=== PATIENT | female | born 1955 | race Caucasian/White ===

== ENCOUNTER 2023-11-06 13:41 | Outpatient (REF) | payer MEDICARE, SELFPAY ==
[2023-11-06 21:22] LABS: ALT 79 U/L (14-59); AST 52 U/L (15-37); Albumin 4.1 g/dL (3.4-5.0); Alkaline Phosphatase 86 U/L (46-116); Anion Gap 8.5 mmol/L (3-11); BUN 21 mg/dL (7-18); Bilirubin, Total 0.5 mg/dL (0.2-1.0); CO2 25.5 mmol/L (21.0-32.0); Calcium 9.7 mg/dL (8.5-10.1); Chloride 104 mmol/L (98-107); Estimated GFR 62.52 (mL/min/1.73m2); Glucose 108 mg/dL (74-106); Potassium 4.3 mmol/L (3.5-5.1); Sodium 138 mmol/L (136-145); TSH 1.27 uIU/mL (0.36-3.74); Total Protein 7.6 g/dL (6.4-8.2)
[2023-11-06 22:07] LABS: Hemoglobin A1C 7.1 % (<5.7)
== END 2023-11-06 13:42 | disposition home or self-care (01) ==
LOC: NCHCN 13:41
PROVIDERS: Visit Provider Nurse Practitioner Family
DX: E11.9 Type 2 diabetes mellitus without complications (principal); E03.9 Hypothyroidism, unspecified
CPT/HCPCS: 80053; 83036; 84443

== ENCOUNTER → 2024-05-25 01:18 | Outpatient (CLI) | payer MEDICARE, SELFPAY ==
--- NOTE | 2024-05-25 06:30 | DI.RAD_ITS ---
Exam(s) XR FOOT LT COMPLETE EXAM: XR FOOT LT COMPLETE CLINICAL HISTORY: Painful bunion lt foot,lt foot pain,m21.612,M79.672. TECHNIQUE: 2D digital imaging was performed of the left foot. Three images were obtained. AP, obli que and lateral views were obtained. COMPARISON: No exams were available for comparison FINDINGS: BONES: No acute fracture is present. No bony destructive lesion is seen. There is a large enthesophyt e at the posterior calcaneus. There is a large plantar calcaneal spur. JOINTS: No dislocation present. There is a hallux valgus deformity. Degenerative changes are seen in the foot particularly at the 1st metatarsophalangeal joint where there is joint space narrowing and osteophytes. Hammertoe deformities are seen particularly at the 2nd and 3rd toes. SOFT TISSUE: Normal. IMPRESSION: Chronic changes of the left foot including hammertoe deformities, hallux valgus deformity and degener ative changes. DATA REPOSITORY: RADIATION DOSE DELIVERED:
== END ==
PROVIDERS: PCP Nurse Practitioner Family; Visit Provider Podiatrist
DX: M79.672 Pain in left foot (principal); M21.612 Bunion of left foot; M20.42 Other hammer toe(s) (acquired), left foot; M20.12 Hallux valgus (acquired), left foot; M19.072 Primary osteoarthritis, left ankle and foot
CPT/HCPCS: 73630

== ENCOUNTER → 2024-06-08 08:38 | Outpatient (BNVA) | payer MEDICARE, SELFPAY | PROVIDERS: PCP Nurse Practitioner Family; Referring Provider Nurse Practitioner Family; Visit Provider Podiatrist | DX: Z01.818 Encounter for other preprocedural examination (principal); M20.22 Hallux rigidus, left foot; M20.42 Other hammer toe(s) (acquired), left foot; G57.82 Other specified mononeuropathies of left lower limb; M21.612 Bunion of left foot; M79.672 Pain in left foot | CPT/HCPCS: 99213 ==

== ENCOUNTER 2024-06-16 15:10 | Outpatient (REF) | payer MEDICARE, SELFPAY ==
[2024-06-16 19:04] LABS: Abs Immature Grans 0.03 10^3/uL (0.0-0.06); Absolute Basophil Count 0.05 10^3/uL (0.0-0.2); Absolute Eosinophil Count 0.17 10^3/uL (0.0-0.7); Absolute Lymphocyte Count 1.73 10^3/uL (1.2-3.4); Absolute Monocyte Count 0.43 10^3/uL (0.1-0.8); Absolute Neutrophil Count 4.96 10^3/uL (1.2-6.7); Basophils % 0.7 %; Eosinophils % 2.3 %; HCT 44.5 % (36.0-46.0); HGB 13.9 g/dL (11.2-15.7); Immature Grans % 0.4 %; Lymphocytes % 23.5 %; MCH 27.9 pg (27.0-33.0); MCHC 31.2 % (32.0-36.0); MCV 89 fL (80-95); MPV 10.8 fL (8.0-11.0); Monocytes % 5.8 %; Neutrophils % 67.3 %; Platelet Count 295 10^3/uL (130-400); RBC 4.99 10^6/uL (3.93-5.22); RDW 13.6 % (11.7-14.6); RDW-SD 43.8 fL; WBC 7.37 10^3/uL (4.4-10.8)
[2024-06-16 19:49] LABS: ALT 80 U/L (14-59); AST 55 U/L (15-37); Albumin 4.2 g/dL (3.4-5.0); Alkaline Phosphatase 88 U/L (46-116); Anion Gap 7.7 mmol/L (3-11); BUN 16 mg/dL (7-18); Bilirubin, Total 0.49 mg/dL (0.2-1.0); CO2 28.3 mmol/L (21.0-32.0); CREATININE 1.2 mg/dL (0.55-1.02); Calcium 9.4 mg/dL (8.5-10.1); Chloride 105 mmol/L (98-107); Estimated GFR 49.92 (mL/min/1.73m2); Glucose 129 mg/dL (74-106); Potassium 4.3 mmol/L (3.5-5.1); Sodium 141 mmol/L (136-145); Total Protein 7.5 g/dL (6.4-8.2)
== END 2024-06-16 15:11 | disposition home or self-care (01) ==
LOC: NCHCN 15:10
PROVIDERS: PCP Nurse Practitioner Family; Visit Provider Nurse Practitioner Family
DX: Z01.818 Encounter for other preprocedural examination (principal)
CPT/HCPCS: 80053; 85025

== ENCOUNTER 2024-07-06 06:09 | Day surgery (SDC) | payer MEDICARE, SELFPAY ==
[2024-07-06 06:12] VITALS: BP 136/82; PULSE 77; RESP 16; TEMP 35.9; O2SAT 98
[2024-07-06] MEDS: Lactated Ringers 1,000 ML 30 ML IV (07:17)
--- NOTE | 2024-07-06 07:22 | ANES.PREOP_ITS ---
General Info Date of Service Date Performed: 07/06/24 Height: 5 ft 3 in Weight: 86.6 kg Body Mass Index (BMI): 33.8 Surgical Procedure: Operation Date: 07/06/24 07:40 Proposed Procedure Side Surgeon p Bunionectomy VS Arthrodesis Left Jewell AdameGUNNER evans s Hammer Toe Correction, Arthrodesis PIPJ Second & Third Toes, Possible Extension Tendon Lengthening Left Jewell Kyle DPM Actual Procedure Side Surgeon p Bunionectomy VS Arthrodesis Left Jewell GUNNER Kyle s Hammer Toe Correction, Arthrodesis PIPJ Second & Third Toes, Possible Extension Tendon Lengthening Left Jewell AdameLUISA evansM Pre-Op Diagnosis Post-Op Diagnosis Hallux rigidus, left foot: Hammertoe of left foot: Interdigital neuroma of left foot: Bunion, left foot: Meds Allergies and Home Medications Allergies Allergy/AdvReac Type Severity Reaction Status Date / Time No Known Allergies Allergy Verified 07/06/24 06:31 Home Medication ?Medication ?Instructions ?Recorded aspirin 81 mg capsule 81 mg PO DAILY 04/14/24 calcium carbonate 600 mg-vitamin 1 tab PO DAILY 04/14/24 D3 20 mcg (800 unit) chewable tablet clotrimazole-betamethasone 1 1 applic topical BID 04/14/24 %-0.05 % topical cream levothyroxine 112 mcg capsule 112 mcg PO DAILY 04/14/24 metformin 1,000 mg tablet 1,000 mg PO DAILY 04/14/24 omeprazole 20 mg capsule,delayed 20 mg PO DAILY 04/14/24 release semaglutide 0.25 mg or 0.5 mg (2 0.5 mg subcut QWEEK 04/14/24 mg/3 mL) subcutaneous pen injector (Ozempic) simvastatin 20 mg tablet 20 mg PO DAILY 04/14/24 Current Visit Medications: Current Medications Generic Name Dose Route Start Last Admin Trade Name Freq PRN Reason Stop Dose Admin Ringer's Solution 1,000 mls @ 30 mls/hr 07/06/24 06:00 07/06/24 07:17 IV 08/02/24 23:59 30 mls/hr INFUSION JOSH Administration IV Miscellaneous Supplies 1 each 07/06/24 06:00 Iv Access IV 08/02/24 23:59 DIRECTED JOSH Sodium Chloride 0 ml 07/06/24 06:00 Normal Saline Flush 10 Ml Syr IV 08/02/24 23:59 PRN PRN Sodium Chloride 0 ml 07/06/24 06:00 Normal Saline 10 Ml Vial IJ 08/02/24 23:59 DIRECTED PRN Sterile Water 0 ml 07/06/24 06:00 Water,Injection,Sterile 10 Ml Vial IJ 08/02/24 23:59 DIRECTED PRN PFSH Active Problems Active Problems: Problem Status Onset Code Pain in left foot Acute M79.672 Interdigital neuroma of left foot Acute G57.82 Hammertoe of left foot Acute M20.42 Hallux rigidus, left foot Acute M20.22 Bunion, left foot Acute M21.612 Hypothyroidism Chronic E03.9 T2DM (type 2 diabetes mellitus) Acute E11.9 Hyperlipidemia Acute E78.5 Obesity Chronic E66.9 GERD (gastroesophageal reflux disease) Chronic K21.9 Steatosis of liver Acute K76.0 Osteopenia Acute M85.80 Dyspnea on exertion Acute R06.09 CKD (chronic kidney disease) Chronic N18.9 Bunion of unspecified foot Acute M21.619 Medical History Medical History Vaginal prolapse repaired FH: total abdominal hysterectomy and bilateral salpingo-oophorectomy Hx of mammogram Surgical History Surgical History Hx of tubal ligation Hx of colonoscopy Tobacco Smoking/Tobacco Use Status: Never Alcohol Alcohol Intake: current Alcohol intake frequency: a few times a month Alcohol type: wine Substance Use Substance use: Never Substance use type: does not use Vital Signs and Lab Results Vital Signs Most Recent Vital Signs in EMR: Most Recent Vital Signs Temp Pulse Resp BP Pulse Ox 35.9 C L 77 16 136/82 98 07/06/24 06:12 07/06/24 06:12 07/06/24 06:12 07/06/24 06:12 07/06/24 06:12 Point of Care Results Point of Care Results: Finger Stick Blood Glucose 72 07/06/24 06:36 Lab Results Blood Type / Crossmatch: No Data to Display Complete Blood Count: White Blood Count 7.37 10^3/uL (4.4-10.8) 06/16/24 14:06 Red Blood Count 4.99 10^6/uL 06/16/24 14:07 Hemoglobin 13.9 g/dL 06/16/24 14:07 Hematocrit 44.5 % 06/16/24 14:08 Platelet Count 295 10^3/uL (130-400) 06/16/24 11:45 Complete Metabolic Panel: Sodium 141 mmol/L (136-145) 06/16/24 11:45 Potassium 4.3 mmol/L (3.5-5.1) 06/16/24 11:45 Chloride 105 mmol/L (98-107) 06/16/24 11:45 Carbon Dioxide 28.3 mmol/L (21.0-32.0) 06/16/24 11:45 BUN 16 mg/dL (7-18) 06/18/24 14:04 Creatinine 1.2 mg/dL (0.55-1.02) H 06/16/24 14:05 Est GFR (CKD-EPI 2020) 49.92 mL/min/ 06/16/24 14:05 Calcium 9.4 mg/dL (8.5-10.1) 06/16/24 11:45 Albumin 4.2 g/dL (3.4-5.0) 06/16/24 11:45 Glucose 129 mg/dL 06/16/24 14:08 Liver Function Panel: Alanine Aminotransferase (ALT/SGPT) 80 U/L 06/16/24 14: 06 Aspartate Amino Transf (AST/SGOT) 55 U/L 06/16/24 14:06 Coagulation Panel: No Data to Display Cardiac Panel: No Data to Display Arterial Blood Gas: No Data to Display Venous Blood Gas: No Data to Display Pancreas Panel: No Data to Display Thyroid Panel: No Data to Display Infectious Disease: No Data to Display Blood Cultures: No Data to Display Toxicology Panel: No Data to Display Anesthesia Assessment and Plan Anesthesia History Personal History: PONV and Delayed Emergence Family History: No Family History of Anesthesia Complications Exercise Tolerance Exercise Tolerance: Metabolic Equivalents>4 Pertinent Negatives Pertinent Negatives: No Symptoms of GERD Cardiac & Pulmonary Exam Cardiac Exam: Normal S1/S2 Heart Sounds Pulmonary Exam: Clear Bilateral Breath Sounds Implantable Cardiac Device Does patient have a Pacemaker or an ICD?: No Airway Exam Known Difficult Airway: No Mallampati Class: 2 Mouth Opening: Normal (> 3cm) Thyromental Distance: Greater than 3 cm Neck Range of Motion: Full ROM Neck Circumference: Normal Teeth Condition: Normal Dentition ASA Classification ASA Score: ASA 2 Emergency Case?: No NPO Status NPO Status: NPO Clears >2 hours, Solids >8 hours Anesthesia Plan Resuscitation Status: Full Code Anesthesia Technique: General Anesthesia Airway Planned: Natural Airway Monitors Used: Standard Monitors
[2024-07-06 07:24] VITALS: BMI 33.8
[2024-07-06] MEDS: ceFAZolin 2 GM/50 ML BAG 50 GM (08:13)
[2024-07-06] MEDS: Lidocaine 1% Multi-Dose W/EPI 1/100,000 50 ML VIAL (08:33)
[2024-07-06] MEDS: ceFAZolin 2 GM/50 ML BAG 200 GM (11:30)
[2024-07-06] MEDS: Bupivacaine 0.5% Pres-Free 30 ML VIAL (11:36)
--- NOTE | 2024-07-06 11:38 | DI.RAD_ITS ---
Exam(s) XR FOOT LT LIMITED EXAM: XR FOOT LT LIMITED CLINICAL HISTORY: Hallux rigidus, left foot: (3) Hammertoe of left. TECHNIQUE: 2D and realtime digital imaging was performed. COMPARISON: CR XR FOOT LT COMPLETE from 05/25/2024 FINDINGS: Hard copy images show placement of hardware across 1st MTP joint. Please see procedure note for details. Fluoro time: 32.6seconds RADIATION DOSE DELIVERED: juan Gupta=0.45 mGy
--- NOTE | 2024-07-06 11:48 | DI.RAD_ITS ---
Exam(s) XR FOOT LT COMPLETE EXAM: XR FOOT LT COMPLETE CLINICAL HISTORY: post op. TECHNIQUE: 2D digital imaging was performed. Three views. Portable. COMPARISON: CR XR FOOT LT COMPLETE from 05/25/2024 XA XR FOOT LT LIMITED from 07/06/2024 FINDINGS: BONES: No acute fracture is present. No bony destructive lesion is seen. Hardware have been placed across the 1st MTP joint for fusion. Screw is seen in the 2nd metatarsal head. There is the resecti ons at the 2nd and 3rd PIP joints. Prominent heel spurs. JOINTS: No dislocation present. SOFT TISSUE: Gauze is in place around the distal foot. IMPRESSION: Postsurgical changes. DATA REPOSITORY: RADIATION DOSE DELIVERED:
--- NOTE | 2024-07-06 11:49 | W.PM.DSUDISC ---
Date of service: 07/06/24 Time of Service: 07:30 Discharge Plan Disposition Patient Disposition: Home Condition: Stable Discharge Details Attending Provider: Jewell Kyle Primary Care Provider: Jaquelin Juárez Home Meds and New Rx's Prescriptions: No Action aspirin 81 mg capsule 81 mg PO DAILY calcium carbonate-vitamin D3 600 mg-20 mcg (800 unit) tablet,chewable 1 tab PO DAILY clotrimazole-betamethasone 1-0.05 % cream 1 applic topical BID levothyroxine 112 mcg capsule 112 mcg PO DAILY metformin 1,000 mg tablet 1,000 mg PO DAILY omeprazole 20 mg capsule,delayed release(DR/EC) 20 mg PO DAILY Ozempic 0.25 mg or 0.5 mg (2 mg/3 mL) pen injector 0.5 mg subcut QWEEK simvastatin 20 mg tablet 20 mg PO DAILY Discharge Instructions Additional Instructions: Patient to keep the dressings clean, dry and intact. Rest, ice and elevate. Apply ice to the left foot 10 minutes on and 20 minutes off [id number]. You may loosen the outer, brown-colored dressing if you have pain. Please call us if you have any nausea vomiting chills fever or diarrhea. Follow-up in office as scheduled Stand Alone Forms: Podiatry Instructions-DSU Equipment/Supplies: Non-Weight Bearing Crutches Activity:: Elevate Remove Dressings/Wound Care:: Do Not Remove Shower/Bathe:: Cover Diet:: Normal Diet DS: Diagnosis Discharge Diagnosis (1) Bunion, left foot: Status: Acute (2) Hallux rigidus, left foot: Status: Acute (3) Hammertoe of left foot: Status: Acute
[2024-07-06 11:50] VITALS: BP 110/69; PULSE 84; RESP 16; TEMP 36; O2SAT 93
--- NOTE | 2024-07-06 11:53 | ROE_ITS ---
Date of service: 07/06/24 Time of Service: 07:30 Operative Note Operative Note DATE OF PROCEDURE: 07/06/24 PRE-OP DIAGNOSIS: Hallux rigidus, bunion, left foot. Hammertoe second and third toe, left foot POST-OP DIAGNOSIS: same PROCEDURE: Arthrodesis, first metatarsophalangeal joint, left foot. Latrice osteotomy second metatarsophalangeal joint, left foot PIPJ arthrodesis second and third toes, left foot Extensor tendon lengthening second toe, left foot SURGEON: Jewell Kyle ANESTHESIA TYPE: Local By Surgeon (20 mL 1% lidocaine with epi preop) Refer to Anesthesia Record ESTIMATED BLOOD LOSS: 5 PATHOLOGY: none sent COMPLICATIONS: None Patient was transported to: same day Patient's condition: stable Implants: Synthes MTP plate 0 degrees dorsiflexion Staple 18 mm x 14 mm x 14 mm 3.0 locking screws 12 mm x 1, 16 mm x 2, 18 mm x 1 Headless screw 2.0 mm x 10 mm short head x 1 Indications: Patient with pain to the first metatarsophalangeal joint, bunion, hammertoes second and third to the left foot. Procedure including all risks, benefits and possible complications including but not limited to infection, bleeding, recurrence, malunion, nonunion, delayed union, chronic pain, swelling, need for further surgery or amputation were discussed with the patient. No guarantees to the outcome of the procedure were made or implied. All questions were answered to patient's satisfaction. Consents and form signed reviewed in chart. Medical clearance granted no contraindications noted to the procedure at this time. Procedure Description: Patient was identified in preop holding. Site was marked. Patient was brought to the operating room placed on the operating table in supine position. Following induction of general anesthesia local analgesia was obtained using 20 mL of 1% lidocaine with epi. An ankle tourniquet was applied to the patient's left ankle. The foot was then scrubbed, prepped and draped in the usual aseptic manner. Attention was directed to the dorsal aspect of the first metatarsophalangeal joint of the left foot where approximately a 5 cm linear longitudinal incision was made medial and parallel to the tendon of the extensor hallucis longus. Incision was deepened through the skin and subcutaneous tissue using sharp and blunt dissection with a sterile #15 blade. Care was taken to identify and retract all vital neurovascular structures. All bleeders were ligated and cauterized as necessary. This time a linear longitudinal incision was made and a capsulotomy was performed over the dorsal aspect of the first metatarsophalangeal joint. The periosteal and capsular structures were then carefully dissected free and reflected medially and laterally displacing the head of the first metatarsal. Using a bone saw the dorsal and medial prominences of the first metatarsal head were resected and passed from the op erative field. Using a rongeur at the dorsal medial and lateral prominences were then removed from the base of the proximal phalanx as well. Next, a guidewire was placed centrally in the head of the first metatarsal. A size 18 reamer was used to reshape the metatarsal head and remove all cartilage. The cartilage that remained was removed with a bone rasp. The guidewire was removed the same was done to the base of the proximal phalanx with a guidewire placed centrally in the base. Size 18 reamer was used to reshape the base of the proximal phalanx and remove all cartilage. The guidewire was then removed. Both sides were then fenestrated. Next, the metatarsal head and the base of the proximal phalanx were then compressed and impacted together. Held in place with a K wire for temporary fixation. Next, the Synthes plate in stable within applied following manufactures guidelines followed by screws. Positioning was confirmed using intraoperative fluoroscopy. Provisional fixation was then removed. The site was then flushed with copious amounts of sterile saline. The periosteal and capsular structures were approximated using 2-0 Vicryl. Subcutaneous tissue was then closed with 4-0 Vicryl. Skin edges were approximated using 4-0 nylon. Attention was then directed to the dorsal aspect of the left second and third toes where a approximately 5 cm linear longitudinal incision was then made through skin and subcutaneous tissue the incision was deepened and a capsulotomy was performed over the dorsal aspect of the proximal interphalangeal joint. A transverse incision was then made at the level of the proximal interphalangeal joint and the EDL tendon of the second and third toes thus exposing the proximal interphalangeal joints which were then freed. Next, using a bone saw the head of the proximal phalanx and the base of the middle phalanx was then resected and passed from the operative field. This was then fixated using TrimIt pins. There was noted to be a contracture of the metatarsophalangeal joint of the second toe therefore the incision site was then lengthened exposing the second metatarsophalangeal joint. A Latrice type osteotomy was performed parallel to the weightbearing surface and the head of the metatarsal. This was then fixated using headless screw. The shelf was then resected using bone cutters and passed from the operative field. Next, decision was made for extensor digitorum longus tendon lengthening the second toe. A Z-type lengthening was performed and secured with 2-0 Vicryl. The chronic fractures were then noted to be vastly reduced. Incision sites were then flushed with copious amounts of sterile saline the tendons were reapproximated using 2-0 Vicryl. Capsular structures were then reapproximated using 4-0 Vicryl. The skin was then reapproximated and coapted using 4-0 nylon. Postoperative injection consisting of 20 mL 0.5% Marcaine plain was then infiltrated around the left foot. Dressings were then applied with Xeroform gauze, Betadine soaked 4 x 4 for a splint type dressing to the second and third toes, 4 x 4, Kerlix and Ganesh wrap. The patient tolerated the procedure and anesthesia well with vital signs stable and vascular status intact to the left lower extremity. Of note, tourniquet was not used today. Patient was transferred to PACU for further monitoring. She is to follow-up in office on . Patient was given extensive postoperative instructions prior.
[2024-07-06 12:33] VITALS: BP 126/84; PULSE 83; RESP 16; TEMP 36; O2SAT 97
--- NOTE | 2024-07-06 13:20 | W.ANESPOSTOP ---
Postoperative Evaluation Date, Time and Location Date Performed: 07/06/24 Time Performed: 12:40 Patient Location: Day Surgery Unit Vital Signs Most Recent Imported Vital Signs: Most Recent Vital Signs Temp Pulse Resp BP Pulse Ox 36 C L 83 16 126/84 97 07/06/24 12:33 07/06/24 12:33 07/06/24 12:33 07/06/24 12:33 07/06/24 12:33 Pain Score Most Recent Pain Score: Most Recent Pain Score Pain Level 0 07/06/24 12:33 Assessment Mental Status: Awake (Alert & Oriented to Patient Baseline) Airway and Respiratory Function: Patent airway with normal (patient baseline) respiratory exam Cardiovascular Function: Hemodynamically Stable Hydration Status: Adequately Hydrated Nausea & Vomiting: No Nausea or Vomiting Pain: Pt. Denies Any Pain Peripheral Nerve Block: Patient did not receive a nerve block
--- NOTE | 2024-07-06 14:30 | NUR.NOTE ---
Accessed chart to get billing information for [employer]. Nursing Note:
== END 2024-07-06 13:27 | disposition home or self-care (01) ==
PROVIDERS: PCP Nurse Practitioner Family; Visit Provider Podiatrist
PROC: (CPT 28292; principal; 2024-07-06 07:30)
PROC: (CPT 28285; 2024-07-06 07:30)
DX: M21.612 Bunion of left foot (principal); M20.22 Hallux rigidus, left foot; M20.42 Other hammer toe(s) (acquired), left foot
CPT/HCPCS: 28308; 28285 ×2; 28750; C1889; 00123; 76000; 73620; 73630; J0665; J0690; J1100; J1805; J2001; J2004; J2250; J2405; J2704

== ENCOUNTER → 2024-07-09 13:07 | Outpatient (BNVA) | payer MEDICARE, SELFPAY | PROVIDERS: PCP Nurse Practitioner Family; Referring Provider Nurse Practitioner Family; Visit Provider Podiatrist | DX: Z98.890 Other specified postprocedural states (principal); M20.22 Hallux rigidus, left foot; M20.42 Other hammer toe(s) (acquired), left foot; G57.82 Other specified mononeuropathies of left lower limb; M21.612 Bunion of left foot; M79.672 Pain in left foot | CPT/HCPCS: 99024 ==

== ENCOUNTER 2024-07-16 01:27 | Outpatient (CLI) | payer MEDICARE, SELFPAY ==
--- NOTE | 2024-07-16 07:15 | DI.RAD_ITS ---
Exam(s) XR FOOT LT COMPLETE EXAM: XR FOOT LT COMPLETE CLINICAL HISTORY: post op M79.672 PAIN M20.42 HAMMER TOE M20.22 HALLUX RIGIDUS M21.610 BUNION. TECHNIQUE: 2D digital imaging was performed. Three views. COMPARISON: CR XR FOOT LT COMPLETE from 07/06/2024 FINDINGS: BONES: Stable postsurgical changes. No acute fracture is present. No bony destructive lesion is seen . Heel spurs. JOINTS: No dislocation present. SOFT TISSUE: Dorsal soft tissue swelling. IMPRESSION: Stable postsurgical changes. DATA REPOSITORY: RADIATION DOSE DELIVERED:
== END 2024-07-16 01:47 ==
LOC: DI 01:27
PROVIDERS: PCP Nurse Practitioner Family; Visit Provider Podiatrist
DX: M20.22 Hallux rigidus, left foot; M21.612 Bunion of left foot
CPT/HCPCS: 73630

== ENCOUNTER → 2024-07-21 08:57 | Outpatient (BNVA) | payer MEDICARE, SELFPAY | PROVIDERS: PCP Nurse Practitioner Family; Referring Provider Nurse Practitioner Family; Visit Provider Podiatrist | DX: Z98.890 Other specified postprocedural states (principal); M20.42 Other hammer toe(s) (acquired), left foot; M20.22 Hallux rigidus, left foot; G57.82 Other specified mononeuropathies of left lower limb; M21.612 Bunion of left foot; M79.672 Pain in left foot | CPT/HCPCS: 99024 ==

== ENCOUNTER 2024-08-06 01:14 | Outpatient (CLI) | payer MEDICARE, SELFPAY ==
--- NOTE | 2024-08-06 09:25 | DI.RAD_ITS ---
Exam(s) XR FOOT LT COMPLETE EXAM: XR FOOT LT COMPLETE CLINICAL HISTORY: Postop,HALLUX RIGIDUS,m20.22,m20.42. TECHNIQUE: 2D digital imaging was performed. COMPARISON: CR XR FOOT LT COMPLETE from 07/16/2024 FINDINGS: 3 views There is stable appearance of the dorsal hardware across the great toe metatarsophalangeal joint as w ell as the single screw in the 2nd metatarsal head. No fracture nor loosening and no evidence of ost eomyelitis. Moderate size inferior calcaneal spur again noted. IMPRESSION: Stable satisfactory appearance DATA REPOSITORY: RADIATION DOSE DELIVERED:
== END 2024-08-06 01:34 ==
LOC: DI 01:14
PROVIDERS: PCP Nurse Practitioner Family; Visit Provider Podiatrist
DX: M20.22 Hallux rigidus, left foot (principal)
CPT/HCPCS: 73630

== ENCOUNTER → 2024-08-13 09:38 | Outpatient (BNVA) | payer MEDICARE, SELFPAY | PROVIDERS: PCP Nurse Practitioner Family; Referring Provider Nurse Practitioner Family; Visit Provider Podiatrist | DX: Z98.890 Other specified postprocedural states (principal); M20.22 Hallux rigidus, left foot; M20.42 Other hammer toe(s) (acquired), left foot; G57.82 Other specified mononeuropathies of left lower limb; M21.612 Bunion of left foot; M79.672 Pain in left foot | CPT/HCPCS: 99024 ==

== ENCOUNTER 2024-09-03 02:49 | Outpatient (CLI) | payer MEDICARE, SELFPAY ==
--- NOTE | 2024-09-03 10:10 | DI.RAD_ITS ---
Exam(s) XR FOOT LT COMPLETE EXAM: XR FOOT LT COMPLETE CLINICAL HISTORY: lt foot hallux rigidus,? fusion,M20.22. TECHNIQUE: 2D digital imaging was performed of the left foot. Three images were obtained. AP, obli que and lateral views were obtained. COMPARISON: CR XR FOOT LT COMPLETE from 08/06/2024 FINDINGS: BONES: No acute fracture is present. No bony destructive lesion is seen. There is an enthesophyte at the posterior calcaneus. There is a moderate-sized plantar calcaneal spur. JOINTS: No dislocation present. There is fusion of the 1st MTP joint with a sideplate and screws in p lace. There is a single screw seen in the head of the 2nd metatarsal bone. Mild degenerative change s are seen in the interphalangeal joints of the foot. SOFT TISSUE: Normal. IMPRESSION: Unchanged appearance of the left foot compared to the prior examination. No acute abnormality. DATA REPOSITORY: RADIATION DOSE DELIVERED:
== END 2024-09-03 03:09 ==
LOC: DI 02:49
PROVIDERS: PCP Nurse Practitioner Family; Visit Provider Podiatrist
DX: M20.22 Hallux rigidus, left foot (principal)
CPT/HCPCS: 73630

== ENCOUNTER 2024-09-29 01:11 | Outpatient (CLI) | payer MEDICARE, SELFPAY ==
--- NOTE | 2024-09-29 07:25 | DI.RAD_ITS ---
Exam(s) XR FOOT LT COMPLETE EXAM: XR FOOT LT COMPLETE CLINICAL HISTORY: ? FUSION,HAMMERTOE LT FOOT, HALLUX RIGIDUS,M20.22,M20.42. TECHNIQUE: 2D digital imaging was performed of the left foot. Three images were obtained. AP, obli que and lateral views were obtained. COMPARISON: CR XR FOOT LT COMPLETE from 09/03/2024 FINDINGS: BONES: No acute fracture is present. No bony destructive lesion is seen. There are postsurgical barry es of a fusion of the 1st MTP joint. The joint space is not visualized. There has been resection of portions of the heads of the proximal phalanges of the 2nd and 3rd toes. There is a large plantar c alcaneal spur and large enthesophyte at the posterior calcaneus. There is a hammertoe deformity of t he 2nd, 4th and 5th toes. JOINTS: No dislocation present. The joint spaces are otherwise well maintained. SOFT TISSUE: Normal. IMPRESSION: Postsurgical changes in the left foot as described above. DATA REPOSITORY: RADIATION DOSE DELIVERED:
== END 2024-09-29 01:31 ==
LOC: DI 01:11
PROVIDERS: PCP Nurse Practitioner Family; Visit Provider Podiatrist
DX: M20.22 Hallux rigidus, left foot (principal); M20.42 Other hammer toe(s) (acquired), left foot
CPT/HCPCS: 73630

== ENCOUNTER 2024-11-25 10:35 | Outpatient (REF) | payer MEDICARE, SELFPAY ==
[2024-11-25 20:48] LABS: ALT 93 U/L (14-59); Albumin 3.9 g/dL (3.4-5.0); Alkaline Phosphatase 89 U/L (46-116); Anion Gap 9.4 mmol/L (3-11); BUN 14 mg/dL (7-18); CO2 25.6 mmol/L (21.0-32.0); CREATININE 1.1 mg/dL (0.55-1.02); Calcium 9.4 mg/dL (8.5-10.1); Calculated LDL 104 mg/dL (<100); Chloride 108 mmol/L (98-107); Cholesterol 174 mg/dL (<200); Estimated GFR 55.07 (mL/min/1.73m2); Glucose 139 mg/dL (74-106); HDL Cholesterol 50 mg/dL (40-60); Potassium 4.3 mmol/L (3.5-5.1); Sodium 143 mmol/L (136-145); TSH 1.02 uIU/mL (0.36-3.74); Total Protein 7.2 g/dL (6.4-8.2); Triglyceride 103 mg/dL (<150)
[2024-11-25 20:57] LABS: AST 83 U/L (15-37)
== END 2024-11-25 10:36 | disposition home or self-care (01) ==
LOC: NCHCN 10:35
PROVIDERS: PCP Nurse Practitioner Family; Visit Provider Nurse Practitioner Family
DX: E03.9 Hypothyroidism, unspecified (principal); E78.5 Hyperlipidemia, unspecified; E11.9 Type 2 diabetes mellitus without complications
CPT/HCPCS: 80053; 80061; 84443

== ENCOUNTER 2024-12-01 00:10 | Outpatient (CLI) | payer MEDICARE, SELFPAY ==
--- NOTE | 2024-12-01 10:46 | DI.RAD_ITS ---
Exam(s) XR FOOT LT COMPLETE EXAM: XR FOOT LT COMPLETE CLINICAL HISTORY: Postop, HALLUX RIGIDUS LT FOOT, M20.22. TECHNIQUE: 2D digital imaging was performed of the left foot. Three images were obtained. AP, obli que and lateral views were obtained. COMPARISON: CR XR FOOT LT COMPLETE from 09/29/2024 FINDINGS: BONES: No acute fracture is present. No bony destructive lesion is seen. There is a moderate size ent hesophyte at the posterior calcaneus. There is a moderate-sized plantar calcaneal spur. JOINTS: No dislocation present. There are stable postsurgical changes of a fusion of the 1st MTP join t. Stable hammertoe deformities are present. There are stable degenerative changes of the foot and stable alignment of the toes. SOFT TISSUE: Normal. IMPRESSION: Stable appearance of the left foot. DATA REPOSITORY: RADIATION DOSE DELIVERED:
== END 2024-12-01 00:30 ==
PROVIDERS: PCP Nurse Practitioner Family; Visit Provider Podiatrist
DX: M20.22 Hallux rigidus, left foot (principal)
CPT/HCPCS: 73630

== ENCOUNTER 2025-01-18 02:02 | Outpatient (CLI) | payer MEDICARE, SELFPAY ==
--- NOTE | 2025-01-18 12:40 | DI.MAMMO_ITS ---
Exam(s) MAMMO SCREENING EXAM: MAMMO SCREENING CLINICAL HISTORY: SCREENING MAMMO FOR BREAST CANCER Z12.39. TECHNIQUE: Bilateral full field digital CC and MLO mammographic images were obtained with 3D tomosyn thesis and utilizing computer aided detection (CAD). COMPARISON: Prior outside mammograms were reviewed. FINDINGS: In the left breast on 3D cc imaging there is an asymmetric density-possible nodule measuring 11 by 5 mm, located 10 cm in from the nipple on the CC view, slightly medial of center. In addition, there i s another nodule seen on the CC view of the left breast located 9 cm in from the nipple and measuring approximately 10 by 7 mm. There are no malignant-appearing microcalcification groups associated wit h these 2 left breast nodules nor elsewhere in the breasts. In the opposite-right breast there is a medially located nodule measuring 5 x 4 mm located 13 cm in f rom the nipple, larger than previous. Also in the right breast on the MLO view there is a well-defin ed noncalcified slightly lobulated nodule measuring 7 x 6 mm, this located 4.5 cm in from the nipple on the MLO view. There is no significant architectural distortion nor skin thickening-retraction. IMPRESSION: There are 2 nodules in each breast as described individually above. Bilateral spot compression views and bilateral complete breast ultrasound recommended. BI-RADS Category 0 - Incomplete: Need additional imaging evaluation Breast Density - Category B - Scattered areas of fibroglandular density Breast density Category C or D implies that the patient has dense breast tissue. Dense breast tissue can make it harder to find cancer on a mammogram. Dense breast tissue is also associated with an incr eased risk of breast cancer. This information about the result of the mammogram report was provided to the patient to raise their awareness. Use this report when you speak with the patient about their risks for breast cancer, which includes their family history. At that time, you may recommend additional screening tests (Ultrasoun d or MRI) as these tests may add significant information. A negative radiographic report should not delay biopsy if a dominant or clinically suspicious mass is present. Up to ten percent of cancers are not identified on mammography. A negative report may reinforce clinical impression. Adenosis and dense breasts may obscure an underlying neoplasm. False positive reports average 6 to 10%. Patient will receive a letter notifying them of these results.
== END 2025-01-18 02:22 ==
LOC: DI 02:02
PROVIDERS: PCP Nurse Practitioner Family; Visit Provider Nurse Practitioner Family
DX: Z12.31 Encounter for screening mammogram for malignant neoplasm of breast (principal); R92.323 Mammographic fibroglandular density, bilateral breasts
CPT/HCPCS: 77063; 77067

== ENCOUNTER 2025-01-26 01:04 | Outpatient (CLI) | payer MEDICARE, SELFPAY ==
--- NOTE | 2025-01-26 | DI.US_ITS ---
Exam(s) US BREAST LT COMPLETE US BREAST RT COMPLETE MG MAMMO SCREEN CALL BACK BI EXAM: MG MAMMO SCREEN CALL BACK BI and bilateral ultrasound breast complete CLINICAL HISTORY: F/U MAMMO, TWO NODULES EACH BREAST, R92.8. TECHNIQUE: Craniocaudal and mediolateral oblique Full Field Digital Mammography views of the bilater al breast with Computer Aided Diagnosis followed by Tomosynthesis and complete bilateral breast ultra sound. All 4 quadrants of the breasts were evaluated sonographically. The axilla and retroareolar r egions were also evaluated. COMPARISON: Comparison is made with prior examinations. FINDINGS: Mammography/Tomosynthesis: Masses/Architectural Distortion: In the right breast, the well-circumscribed nodule in the posterior medial right breast persist. The nodule in the outer right breast also persists. The asymmetric den sity in the inferior medial left breast also persists on the additional views. No areas of [employer] architect ural distortion are seen. Microcalcifictions: No suspicious pleomorphic-type are seen. Skin Thickening/Nipple Retraction: None. Complete bilateral breast US: Echotexture: Normal appearance of the glandular tissue. Shadowing: No suspicious foci. Cyst: In the left breast, there is a 0.9 x 0.5 x 0.6 cm simple cyst at the 1 o'clock position 3 cm fr om the nipple. At the 7 o'clock position 7 cm from the nipple there is a collection of small cysts. No suspicious cysts are seen in the left breast. In the right breast, there is a sebaceous cyst at the 3 o'clock positions 12 cm from the nipple. This would correspond to the nodule seen on the mammo gram. At the 9 o'clock position of the right breast 5 cm from the nipple, there is a 0.7 cm simple c yst. This would also correspond to the nodule seen in the outer right breast on the mammogram. No d efinite correlate is seen to the asymmetric density in the inferior medial left breast on the MLO vie w. Solid lesions: None seen. Ductal dilation: None. IMPRESSION: 1. No definite evidence of malignancy is noted. 2. A six-month follow-up left mammogram is requested for re-evaluation. The right breast should cont inue with yearly screening mammography. 3. The findings were discussed with the patient on the date of the examination. BI-RADS Category 3 - 6 month - Probably Benign Finding: Recommend follow-up imaging in 6 months Breast Density - Category B - Scattered areas of fibroglandular density Breast density Category C or D implies that the patient has dense breast tissue. Dense breast tissue can make it harder to find cancer on a mammogram. Dense breast tissue is also associated with an incr eased risk of breast cancer. This information about the result of the mammogram report was provided to the patient to raise their awareness. Use this report when you speak with the patient about their risks for breast cancer, which includes their family history. At that time, you may recommend additional screening tests (Ultrasoun d or MRI) as these tests may add significant information. A negative radiographic report should not delay biopsy if a dominant or clinically suspicious mass is present. Up to ten percent of cancers are not identified on mammography. A negative report may reinforce clinical impression. Adenosis and dense breasts may obscure an underlying neoplasm. False positive reports average 6 to 10%. Patient will receive a letter notifying them of these results.
== END 2025-01-26 01:24 ==
LOC: DI 01:05
PROVIDERS: PCP Nurse Practitioner Family; Visit Provider Nurse Practitioner Family
DX: Z12.31 Encounter for screening mammogram for malignant neoplasm of breast; N60.02 Solitary cyst of left breast
CPT/HCPCS: 76642; 77063; 77067

== ENCOUNTER 2025-05-25 12:47 | Outpatient (REF) | payer MEDICARE, SELFPAY ==
[2025-05-25 21:01] LABS: ALT 106 U/L (14-59); AST 85 U/L (15-37); Albumin 4.2 g/dL (3.4-5.0); Alkaline Phosphatase 81 U/L (46-116); Anion Gap 12.7 mmol/L (3-11); BUN 16 mg/dL (7-18); Bilirubin, Total 0.6 mg/dL (0.2-1.0); CO2 24.3 mmol/L (21.0-32.0); Calcium 9.5 mg/dL (8.5-10.1); Chloride 104 mmol/L (98-107); Estimated GFR 61.75 (mL/min/1.73m2); Glucose 116 mg/dL (74-106); Potassium 4.9 mmol/L (3.5-5.1); Sodium 141 mmol/L (136-145); Total Protein 7.5 g/dL (6.4-8.2)
== END 2025-05-25 12:48 | disposition home or self-care (01) ==
LOC: NCHCN 12:47
PROVIDERS: PCP Nurse Practitioner Family; Visit Provider Nurse Practitioner Family
DX: N18.30 Chronic kidney disease, stage 3 unspecified (principal)
CPT/HCPCS: 80053

== ENCOUNTER 2025-06-01 02:31 | Outpatient (CLI) | payer MEDICARE, SELFPAY ==
--- NOTE | 2025-06-01 10:02 | DI.RAD_ITS ---
Exam(s) XR FOOT LT COMPLETE EXAM: XR FOOT LT COMPLETE CLINICAL HISTORY: Postop,POST OP PAIN,G89.18,M79.609. TECHNIQUE: 2D digital imaging was performed. Two images were obtained. AP, lateral and oblique views were obtained. COMPARISON: CR XR FOOT LT COMPLETE from 12/01/2024 FINDINGS: BONES: There are stable post operative changes of a 1st MTP joint fusion present. No new fracture or dislocation. Hammertoe deformities of the 2nd through 5th toes are noted. There is a large enthesophyte at the posterior calcaneus. There is a large plantar calcaneal spur. JOINTS: The joint spaces are well maintained. SOFT TISSUE: Normal. IMPRESSION: Stable postoperative changes. DATA REPOSITORY: RADIATION DOSE DELIVERED:
== END 2025-06-01 02:51 ==
LOC: DI 02:31
PROVIDERS: PCP Nurse Practitioner Family; Visit Provider Podiatrist
DX: G89.18 Other acute postprocedural pain (principal); Z98.890 Other specified postprocedural states; M79.672 Pain in left foot; M20.22 Hallux rigidus, left foot; M21.612 Bunion of left foot; M20.42 Other hammer toe(s) (acquired), left foot; G57.82 Other specified mononeuropathies of left lower limb
CPT/HCPCS: 29540; 99213; 73630

== ENCOUNTER → 2025-07-06 10:15 | Outpatient (BNVA) | payer MEDICARE, SELFPAY | PROVIDERS: PCP Nurse Practitioner Family; Referring Provider Nurse Practitioner Family; Visit Provider Podiatrist | DX: Z98.890 Other specified postprocedural states (principal); M21.612 Bunion of left foot; M20.42 Other hammer toe(s) (acquired), left foot; M20.22 Hallux rigidus, left foot; G57.82 Other specified mononeuropathies of left lower limb; M79.672 Pain in left foot | CPT/HCPCS: 99213 ==

== ENCOUNTER 2025-07-30 04:35 | Outpatient (CLI) | payer MEDICARE, SELFPAY ==
--- NOTE | 2025-07-30 | DI.MAMMO_ITS ---
Exam(s) US BREAST LT COMPLETE MG MAMMO DIAGNOSTIC UNI EXAM: MG MAMMO DIAGNOSTIC UNI-LEFT AND COMPLETE LEFT BREAST ULTRASOUND CLINICAL HISTORY: LUMP LEFT BREAST N63.0 6 MO FU. TECHNIQUE: Unilateral LEFT BREAST CC AND MLO mammographic images were obtained with 3D tomosynthesis technique and utilizing computer aided detection (CAD). COMPLETE LEFT BREAST ULTRASOUND was performed including all 4 quadrants as well as the retroareolar region. COMPARISON: Prior mammograms were reviewed, the most recent being 01/18/2025.. Prior ultrasound examination of 01/26/2025 was reviewed. FINDINGS: DIAGNOSTIC LEFT BREAST MAMMOGRAM: The previously described 9 x 5 mm noncalcified nodular density located 10 cm in from the nipple on the CC view, slightly medial of center appears unchanged from the mammogram of December 2024. On the MLO view there is no oval noncalcified nodule measuring 7 by 4 mm located 2 cm in from the nipple, slightly lateral of center. This is also unchanged from December 2024 mammogram and December 2023 mammogram. There are no new spiculated masses. No malignant-appearing microcalcification groups. No new architectural distortion or skin thickening-retraction. COMPLETE LEFT BREAST ULTRASOUND: There are no ultrasound findings to correspond to the 9 x 5 mm nodular density slightly medial of center on the CC view (which is unchanged mammographically from 01/18/2025), implying that this is most probably a benign intramammary lymph node. There is a 4 x6 millimeter benign microcyst at the 1 o'clock position. There is a 4 x 3 mm benign microcyst at the 2 o'clock position. There is a 4 x 2 mm benign microcyst at the 4 o'clock position. There is a 6 x 3 mm benign microcyst at the 11 o'clock position. Most importantly, there are no solid lesions in all 4 quadrants of the left breast. Scanning of the left axilla is negative for significant adenopathy. IMPRESSION: 1. Stable mammographic appearance of the left breast nodule located slightly medial of center 10 cm in from the nipple on the left CC view. This is unchanged from mammogram of December 2024. I suspect that it is a benign intramammary lymph node given its absence of visualization on ultrasound. 2. There are 4 small benign microcysts elsewhere in the breast as described above. Appropriate follow-up is repeat mammogram and ultrasound at time of her next yearly mammogram which is in 6 months from now.. Earlier imaging would be recommended if there is a self detected breast change noted. The patient was informed of the findings and follow-up recommendations by myself prior to leaving the department today. BI-RADS Category 3 - 6 month - Probably Benign Finding: Recommend follow-up mammography in 6 months Breast Density - Category B - There are scattered areas of fibroglandular density. Breast density Category C or D implies that the patient has dense breast tissue. Dense breast tissue can make it harder to find cancer on a mammogram. Dense breast tissue is also associated with an increased risk of breast cancer. This information about the result of the mammogram report was provided to the patient to raise their awareness. Use this report when you speak with the patient about their risks for breast cancer, which includes their family history. At that time, you may recommend additional screening tests (Ultrasound or MRI) as these tests may add significant information. A negative radiographic report should not delay biopsy if a dominant or clinically suspicious mass is present. Up to ten percent of cancers are not identified on mammography. A negative report may reinforce clinical impression. Adenosis and dense breasts may obscure an underlying neoplasm. False positive reports average 6 to 10%. Patient will receive a letter notifying them of these results.
== END 2025-07-30 04:55 ==
PROVIDERS: PCP Nurse Practitioner Family; Visit Provider Nurse Practitioner Family
DX: Z12.31 Encounter for screening mammogram for malignant neoplasm of breast (principal); N62 Hypertrophy of breast
CPT/HCPCS: 76642; 77061; 77065; G0279

== ENCOUNTER 2025-08-24 21:35 | Outpatient (REF) | payer MEDICARE, SELFPAY ==
[2025-08-24 20:13] LABS: COMMENT (LAB VIEW ONLY) 95.54 mg/dL; Microalb ug/mg Crea 7.0 ug/mg Cr
[2025-08-24 20:21] LABS: ALT 88 U/L (14-59); AST 59 U/L (15-37); Albumin 3.9 g/dL (3.4-5.0); Alkaline Phosphatase 83 U/L (46-116); Bilirubin, Direct 0.1 mg/dL (0.0-0.2); Bilirubin, Total 0.4 mg/dL (0.2-1.0); TSH (W/Ref FT4) 5.09 uIU/mL (0.36-3.74); Total Protein 7.3 g/dL (6.4-8.2)
== END 2025-08-24 21:36 | disposition home or self-care (01) ==
LOC: NCHCN 21:35
PROVIDERS: PCP Nurse Practitioner Family; Visit Provider Nurse Practitioner Family
DX: K76.0 Fatty (change of) liver, not elsewhere classified (principal); E03.9 Hypothyroidism, unspecified; N18.30 Chronic kidney disease, stage 3 unspecified
CPT/HCPCS: 80076; 82043; 82570; 84439; 84443